=== PATIENT | female | born 1970 | race Caucasian/White ===

== ENCOUNTER 2021-07-23 10:13 | Day surgery (SDC) | payer BC, SELFPAY ==
[2021-07-17 15:18] VITALS: BMI 32.8
--- NOTE | 2021-07-20 09:23 | HO.ANESPROP2 ---
Documented by User: Georgia Banuelos NP 07/20/21 09:23 HPI - Anesthesia Eval Consult details Narrative: 51yo F for Upper Endoscopy and Colonoscopy [facility] Past Medical History Medical History (Updated 07/17/21 @ 15:10 by Ninfa Gary RN) Hypothyroid Surgical History Surgical History (Updated 07/17/21 @ 15:10 by Ninfa Gary RN) Hx of reconstruction of anterior cruciate ligament tear Social History Social History Patient Tobacco Use Status: Never used Tobacco Advance Directives: No Advance Directives Information Provided: Yes Advance Directives on File: No Meds Allergies Allergy/AdvReac Type Severity Reaction Status Date / Time No Known Allergies Allergy Verified 07/17/21 15:10 Home Medications Medication Instructions Recorded Confirmed Last Taken Type levothyroxine 25 mcg tablet 25 mcg PO DAILY 07/17/21 07/17/21 07/23/21 History (Synthroid) Exam Exam Date and Time: July 20, 2021 0923 Height,Weight and Vital Signs: Height 5 ft 4 in Weight 86.636 kg Assessment and Plan Assessment Anesthesia Assessment: Chart Reviewed Documented by User: Aly Conn MD 07/23/21 21:03 [facility] Past Medical History Medical History (Updated 07/17/21 @ 15:10 by Ninfa Gary RN) Hypothyroid Functional capacity: independent ambulation Family History Family history of problems with anesthesia: No Surgical History Surgical History (Updated 07/17/21 @ 15:10 by Ninfa Gary RN) Hx of reconstruction of anterior cruciate ligament tear History of Problems with Anesthesia: No Social History Social History Patient Tobacco Use Status: Never used Tobacco Advance Directives: No Advance Directives Information Provided: Yes Advance Directives on File: No Meds Allergies Allergy/AdvReac Type Severity Reaction Status Date / Time No Known Allergies Allergy Verified 07/17/21 15:10 Home Medications Medication Instructions Recorded Confirmed Last Taken Type levothyroxine 25 mcg tablet 25 mcg PO DAILY 07/17/21 07/17/21 07/23/21 History (Synthroid) Exam Airway Mallampati Class: II TM Dist: >3cm Neck ROM: Full Loose/Missing/Broken Teeth: Yes (Crowns , chipped . ) Heart: rrr Lungs: b/l breath sounds Assessment and Plan Assessment Anesthesia Assessment: Anesthesia Plan Discussed Final Anesthetic Review Family History of Problems with Anesthesia: No History of Problems with Anesthesia: No NPO: Yes ASA Class: II Final Preanesthetic Review: Meds/Allgs Chart Reviewed, Consent Obtained/Reviewed and Anes Risks/Benef Reviewed Patient Risk: Intermediate Procedure Risk: Intermediate Anesthetic Plan Anesthetic Plan: MAC: Disposition: Standard PACU
[2021-07-23 09:19] VITALS: BP 122/86; PULSE 66; RESP 16; TEMP 37.2; O2SAT 96
[2021-07-23] MEDS: Lactated Ringers 1,000 ML 100 ML IVCONT (09:31)
[2021-07-23 11:22] VITALS: BP 116/78; PULSE 67; RESP 12; TEMP 36.2; O2SAT 100
--- NOTE | 2021-07-23 11:25 | PM.OP ---
Brief Operative Note Date of Service: 07/23/21 Pre-op diagnosis: GERD, Screening Post-op diagnosis: other (Esophagitis, Hiatal hernia, Polyps) Procedure: EGD with biopsies, Colonoscopy to the cecum and TI with bx/removal of polyp and cold snare polypectomy at 20cm Surgeon: Kunal Felipe Anesthesia: MAC Was an Ophthalmic Asst used for this Procedure?: No Estimated blood loss (mL): 2.0 Pathology: other (A. EG Junction at 32cm B. Colon polyps at 20cm) Condition: stable Disposition: PACU
[2021-07-23 11:48] VITALS: BP 110/76; PULSE 60; RESP 18; TEMP 36.2; O2SAT 97
--- NOTE | 2021-07-23 13:15 | OP_ITS ---
SURGEON: Kunal Felipe MD INDICATIONS: The patient presents for evaluation of gastroesophageal reflux and colorectal cancer screening. Full consent has been obtained from her for both procedures, including risks of bleeding and perforation. PREOPERATIVE DIAGNOSIS: POSTOPERATIVE DIAGNOSIS: PROCEDURE PERFORMED: Esophagogastroduodenoscopy with biopsies, and colonoscopy to the cecum and terminal ileum with biopsy and removal of polyp, and cold snare polypectomy. ESTIMATED BLOOD LOSS: COMPLICATIONS: ANESTHESIA: Monitored anesthesia care. ASSISTANTS: SPECIMENS: PREOPERATIVE DIAGNOSES: Gastroesophageal reflux and colorectal cancer screening. POSTOPERATIVE DIAGNOSES: Gastroesophageal reflux, colorectal cancer screening, hiatal hernia, reflux esophagitis, colon polyps, diverticulosis, and internal hemorrhoids. DESCRIPTION OF PROCEDURE: The patient was placed in the left lateral decubitus position. The Olympus video gastroscope was passed in the posterior oropharynx and upper esophagus under direct vision. The scope was passed slowly to the distal esophagus. The gastroesophageal junction appeared at 32 cm and was notable for evidence of erosive esophagitis with some friability of the mucosa as well. There was no ulceration, mass, nor stricture. There was no definitive evidence of Brock's mucosa. The scope entered into the stomach. There was a moderate-sized hiatal hernia. The scope was advanced to the pylorus and the duodenum was cannulated to the descending portion. The duodenum including the bulb appeared normal without mass or ulceration. Scope was withdrawn back to the stomach. The gastric antrum and body appeared normal with good peristalsis. The scope was retroflexed visualizing the proximal stomach carefully, which appeared normal, without any sign of mass or ulceration. Scope was straightened and withdrawn back to the esophagus. Biopsies were obtained at the EG junction at 32 cm in the area of esophagitis. Proximal to this, the esophageal mucosa appeared normal. The scope was withdrawn from the patient. She was turned around for the colonoscopy. The digital rectal exam revealed no abnormalities. The Olympus video pediatric colonoscope was entered into the rectum and advanced easily to the cecum. Once in the cecum I did identify normal-appearing cecal pouch with appendiceal orifice and a normal-appearing ileocecal valve. The terminal ileum was cannulated and appeared normal. The scope was withdrawn back into the colon. The entire cecum and ileocecal valve appeared normal. The scope was slowly withdrawn assessing all mucosal surfaces carefully. Preparation was excellent. At 20 cm were 2 polyps. One was grossly adenomatous and was approximately 3 or 4 mm in diameter. This was removed completely with cold biopsy forceps. The other polyp was approximately 5 or 6 mm and probably hyperplastic and removed with cold snare polypectomy and recovered by suction. The polypectomy site appeared clean, without any sign of residual polyp nor any significant bleeding. I did not visualize any other polyps, colitis, or angiodysplasia. There was a mild amount of sigmoid diverticulosis. In the rectum, the scope was retroflexed visualizing internal hemorrhoids, but no other pathology. The rectal mucosa appeared normal. The scope was straightened and withdrawn from the patient. She tolerated both procedures well and was returned to the recovery area in stable condition. IMPRESSION: 1. Erosive esophagitis. 2. Hiatal hernia. 3. Colon polyps. 4. Diverticulosis. 5. Internal hemorrhoids. PLAN: The results of the pathology will be checked. Given these findings, I shall start her on omeprazole 20 mg daily. She was advised to see me in 2 to 3 months for a followup visit. If the polyp is a tubular adenoma, I would recommend a followup colonoscopy in 5 years. If they are only hyperplastic, I would recommend a followup colonoscopy in 10 years. She was advised to stay off all aspirin and NSAIDs for at least a week. She has not had any particular symptoms of reflux but given today's findings, I would tend to keep her on the PPI potentially fdc. She was advised to see me in 2 to 3 months for a followup visit. MD SCOT Caraballo/CHIDI / [id number] MTDD
== END 2021-07-23 12:09 | disposition home or self-care (01) ==
PROVIDERS: PCP Internal Medicine; Visit Provider Internal Medicine
PROC: (CPT 45385; principal; 2021-07-23 10:00)
DX: Z12.11 Encounter for screening for malignant neoplasm of colon (principal); K63.5 Polyp of colon; K57.30 Diverticulosis of large intestine without perforation or abscess without bleeding; K64.8 Other hemorrhoids; K21.00 Gastro-esophageal reflux disease with esophagitis, without bleeding; K44.9 Diaphragmatic hernia without obstruction or gangrene; E03.9 Hypothyroidism, unspecified; Z79.899 Other long term (current) drug therapy
CPT/HCPCS: 45385; 45380; 43239; 88305; J2250